=== PATIENT | male | born 1955 | race Caucasian/White ===

== ENCOUNTER 2017-07-18 09:03 | Day surgery (SDC) | payer BC ==
[2017-07-18] MEDS: Lactated Ringers 1,000 ML IV SCH (09:32)
[2017-07-18] MEDS ORDERED: Propofol 200 MG/20 ML SDV ONE (10:03)
[2017-07-18] MEDS ORDERED: fentaNYL 100 MCG/2 ML SDV ONE (10:03)
[2017-07-18] MEDS ORDERED: Lactated Ringers 1,000 ML IV SCH (10:15)
[2017-07-18 11:48] VITALS: BP 134/67
--- NOTE | 2017-07-18 14:06 | OR ---
PREOPERATIVE DIAGNOSIS: History of polyps. POSTOPERATIVE DIAGNOSIS: Colonic polyps x2 and sigmoid diverticulosis. PROCEDURE PROPOSED: Total flexible colonoscopy. PROCEDURE DONE: Total flexible colonoscopy with polypectomy x2. INDICATION: This is a 61-year-old gentleman who of couple years ago had a colonoscopy done for his 1st time and had about 7 polyps removed and he was recommended to have a 2-year recheck. TECHNIQUE: The patient was brought to the endoscopy suite, placed in left lateral decubitus position. He was sedated per [employer] with propofol. A flexible video colonoscope was then passed transanally and under visualization advanced to the cecum. Examination revealed a normal ascending colon and a transverse colon at about 80 cm. There was a small polyp removed with 1 bite of the cold biopsy forceps and submitted for pathologic examination. The descending colon was unremarkable. The sigmoid colon revealed diverticulosis and at 20 cm from anal verge, there was a 2nd polyp removed with 2 bites with cold biopsy forceps and submitted for pathologic examination. The remainder of the rectosigmoid was normal as the scope was then withdrawn. He tolerated the procedure well. FINAL IMPRESSION: 1. Sigmoid diverticulosis. 2. Colonic polyps x2 removed. PLAN: He will be sent a letter with pathology report. I felt that he could wait 5 years and have a colonoscopy every 5 years hereafter for colonic surveillance for his polyps. SCM: 07/18/2017 10:59:03 MODL: 07/18/2017 11:33:25 /[id number]
--- NOTE | 2017-07-24 08:45 | LETTER ---
07/21/2017 Ansley Vargas RE: ANSLEY VARGAS : 1955 Dear Ansley, The polyps removed from your colon were considered precancerous-type polyps, known as tubular adenomas. There were no worrisome findings within your polyps, but because of these findings, I feel that you should continue to have your colon evaluated every 5 years hereafter. If you have any further questions, feel free to call. Respectfully,
== END 2017-07-18 11:50 | disposition home or self-care (01) ==
LOC: VM.SDS 09:03
PROVIDERS: ATTEND Surgery
DX: Z12.11 Encounter for screening for malignant neoplasm of colon (principal); D12.6 Benign neoplasm of colon, unspecified; K63.5 Polyp of colon; K57.30 Diverticulosis of large intestine without perforation or abscess without bleeding; Z86.010 Personal history of colon polyps; J41.1 Mucopurulent chronic bronchitis; E11.9 Type 2 diabetes mellitus without complications; E78.5 Hyperlipidemia, unspecified; F41.9 Anxiety disorder, unspecified; F32.9 Major depressive disorder, single episode, unspecified; Z87.891 Personal history of nicotine dependence; Z79.82 Long term (current) use of aspirin; Z79.899 Other long term (current) drug therapy
CPT/HCPCS: J2704; J3010; J7120

== ENCOUNTER 2022-06-05 09:49 | Emergency (ER) | payer BC ==
[2022-06-05 10:27] LABS: CHLORIDE,CL 104 mmol/L (98-107); SODIUM,NA 141 mmol/L (136-145)
[2022-06-05 10:30] LABS: ANION GAP 13.1 mmol/L (5-15); ESTIMATED GFR 74 mL/min (>=60)
[2022-06-05 11:04] VITALS: BP 150/82; PULSE 68
== END 2022-06-05 11:04 | disposition home or self-care (01) ==
LOC: VM.ED 09:49
DX: K59.00 Constipation, unspecified (principal); E11.9 Type 2 diabetes mellitus without complications
CPT/HCPCS: 36415; 74019; 80053; 81001; 85025; 86140; 99284